=== PATIENT | male | born 1930 | race Hispanic/Latino ===

== ENCOUNTER 2017-12-18 06:18 | Observation (INO) | payer MEDICARE ==
[2017-12-16 12:22] VITALS: BP 142/60
[2017-12-16 12:39] LABS: BASOPHILS % (AUTO) 0.4 % (0.0-5.0); EOSINOPHILS % (AUTO) 8.1 % (0.0-8.0); HEMATOCRIT 36.8 % (42-54); LYMPHOCYTES % (AUTO) 21.4 % (21.0-51.0); MEAN CORPUSCULAR HEMOGLOBIN 31.5 pg (27.0-33.0); MEAN CORPUSCULAR HGB CONC 33.6 g/dL (32.0-36.0); MEAN CORPUSCULAR VOLUME 93.7 fL (79-99); MONOCYTES % (AUTO) 12.2 % (3.0-13.0); NEUTROPHILS % (AUTO) 57.9 % (40.0-77.0); PLATELET COUNT (AUTO) 157 K/uL (130-400); RED BLOOD CELL COUNT(AUTO) 3.93 MIL/uL (4.50-6.20); RED CELL DISTRIBUTION WIDTH 16.5 % (11.0-15.5); WHITE BLOOD COUNT (AUTO) 6.8 K/uL (4.8-10.8)
[2017-12-16 12:44] LABS: CREATININE 0.8 mg/dL (0.5-1.5); POTASSIUM 3.8 mmol/L (3.5-5.1)
[2017-12-16 15:28] LABS: INR 1.08 (0.85-1.15); PARTIAL THROMBOPLASTIN TIME 26.2 SEC (26.3-35.5); PROTHROMBIN TIME 11.1 SEC (9.6-11.6)
[2017-12-18] VITALS (20 sets, daily range): BP systolic 92–158; BP diastolic 44–87
[~2017-12-18] VITALS: Ht 165.1 cm; Wt 83.6 kg
[~2017-12-18 06:18] MED LIST: CARV12.511 PO; CEFAZOLIN SODIUM 1 GM VIAL IVP SCH; DIGO125T87 PO; IPRA3AMP24 IH; SIMV20TA6 PO
[2017-12-18] MEDS: SODIUM CHLORIDE 0.9% 1000ML 1,000 ML IV SCH ×3 (06:30→18:22)
[2017-12-18] MEDS ORDERED: CEFAZOLIN 1GM / D5W 50ML 150 ML ONE (07:16)
[2017-12-18] MEDS ORDERED: LIDOCAINE HCL 1% MDV 50ML VIAL ONE (07:17)
[2017-12-18] MEDS ORDERED: BUPIVACAINE/PF 0.25% 30ML VIAL IJ ONE (07:17)
[2017-12-18] MEDS ORDERED: LEVO500T2 PO (08:08)
[2017-12-18] MEDS: ACETAMINOPHEN 325 MG TAB PO PRN (08:50)
[2017-12-18] MEDS ORDERED: ONDANSETRON HCL MDV 20ML 2 MG/ML VIAL ONE (13:48)
[2017-12-18] MEDS ORDERED: CEFAZOLIN 1GM / D5W 50ML 50 ML IV SCH (15:30)
[2017-12-18] MEDS: CEFAZOLIN SODIUM 1 GM VIAL IVP SCH ×2 (15:56→22:06)
[2017-12-18] MEDS ORDERED: ACETAMINOPHEN-CODEINE 300/30MG TAB ONE (16:30)
[2017-12-18] MEDS ORDERED: IPRATROPIUM 0.5 MG/2.5 ML INH IH PRN (18:30)
[2017-12-18] MEDS ORDERED: ATORVASTATIN CALCIUM 10 MG TABLET PO SCH (21:00)
[2017-12-18] MEDS: CARVEDILOL 12.5 MG TABLET PO SCH (21:23)
[2017-12-19] MEDS: ACETAMINOPHEN 325 MG TAB PO PRN (03:13)
[2017-12-19 04:13] VITALS: BP 132/64
[2017-12-19] MEDS: SODIUM CHLORIDE 0.9% 1000ML 1,000 ML IV SCH (06:10)
[2017-12-19 07:00] VITALS: BP 134/87
[2017-12-19] MEDS: CEFAZOLIN SODIUM 1 GM VIAL IVP SCH (07:00)
[2017-12-19] MEDS: CARVEDILOL 12.5 MG TABLET PO SCH (10:48)
[2017-12-19 11:00] VITALS: BP 132/65
[2017-12-19] MEDS ORDERED: DIGOXIN 125 MCG TABLET PO SCH (16:00)
== END 2017-12-19 13:38 | disposition home or self-care (01) ==
LOC: DAH 06:18 → DAHIP 06:19 → DAH 06:19 → 2AH 18:17
PROVIDERS: ADMIT Internal Medicine Cardiovascular Disease; ATTEND Internal Medicine Cardiovascular Disease
DX: I45.9 Conduction disorder, unspecified (principal); I48.1 Persistent atrial fibrillation; I25.10 Atherosclerotic heart disease of native coronary artery without angina pectoris; E78.5 Hyperlipidemia, unspecified; I10 Essential (primary) hypertension; J44.9 Chronic obstructive pulmonary disease, unspecified; Z95.0 Presence of cardiac pacemaker; Z79.899 Other long term (current) drug therapy
CPT/HCPCS: 33227; 36415; 80048; 85025; 85610; 85730; 93005; 94664; 96374; 96376 ×2; A4218 ×2; A4606; C1786; G0378 ×31; J0690 ×4; J3490 ×2